=== PATIENT | female | born 1980 | race African-American/Black ===

== ENCOUNTER 2017-07-09 18:02 | Emergency (ER) | payer OTHER ==
[2017-07-09 18:17] VITALS: BMI 54.8
[2017-07-09] MEDS ORDERED: METOCLOPRAMIDE HCL INJECTION 10 MG/2 ML VIAL IVPUSH ONE (19:22)
[2017-07-09] MEDS ORDERED: ACETAMINOPHEN 1000 MG/100 ML VIAL (NON FORMULARY) IVPB ONE (19:22)
[2017-07-09] MEDS ORDERED: SODIUM CHLORIDE 1,000 ML IV STA (19:22)
[2017-07-09] MEDS ORDERED: ACETAMINOPHEN INJECTION 100 ML IVPB ONE (19:33)
[2017-07-09] MEDS ORDERED: METOCLOPRAMIDE HCL INJECTION 10 MG/2 ML VIAL ONE (19:33)
--- NOTE | 2017-07-09 19:40 | PDOC ---
History of Present Illness - General History Source: Patient Exam Limitations: No Limitations - History of Present Illness Initial Comments: 07/09/17 19:50 The patient is a 36 year old female, with a significant past medical history of migraines and protein C deficiency, who presents to the emergency department with, one week of left hip pain and migraines. She describes her left hip pain as a sharp throbbing, radiating down to her left lower leg. She describes her migraine as localized to the back left head radiating to the left frontal region of her head. She reports her symptoms to be similar to her normal migraines. Secondary to her symptoms she reports, difficulty ambulating and minor edema to the left upper thigh. She reports using Tylenol and Motrin, without relief. She denies trauma to the area. She denies photophobia. She denies recent fevers or dizziness. She denies recent nausea, vomit, diarrhea or constipation. She denies recent dysuria, frequency, urgency or hematuria. She denies recent chest pain or shortness of breath. Allergies: NKA Past surgical history: None reported. Social history: Nonsmoker. Denies EtOH use and recreational drug use. <José Antonio Mariano - Last Filed: 07/09/17 22:12> - General History Source: Patient Exam Limitations: No Limitations <Ashvin Castaneda - Last Filed: 07/10/17 00:14> - General Chief Complaint: Migraine Headache Stated Complaint: BACK PAIN Time Seen by Provider: 07/09/17 19:01 Past History <José Antonio Mariano - Last Filed: 07/09/17 22:12> - Past Medical History COPD: No Other medical history: MIGRAINES, PROTEIN C DEFEICENCY - Suicide/Smoking/Psychosocial Hx Smoking History: Never smoked Information on smoking cessation initiated: No Hx Alcohol Use: No Drug/Substance Use Hx: No Substance Use Type: None <Ashvin Castaneda - Last Filed: 07/10/17 00:14> - Past Medical History Allergies/Adverse Reactions: Allergies Allergy/AdvReac Type Severity Reaction Status Date / Time No Known Allergies Allergy Verified 07/09/17 18:13 Home Medications: Ambulatory Orders Acetaminophen 500 mg PO PRN PRN 07/09/17 Acetaminophen/Caffeine/Butalb [Fioricet -] 1 tab PO Q6H PRN #20 tablet MDD 4 Naproxen 500 mg PO BID PRN #20 tablet 07/10/17 Review of Systems - Review of Systems Able to Perform ROS?: Yes Comments:: 07/09/17 19:51 GENERAL/CONSTITUTIONAL: No fever or chills. No weakness. HEAD, EYES, EARS, NOSE AND THROAT: No change in vision. No ear pain or discharge. No sore throat. CARDIOVASCULAR: No chest pain or shortness of breath. RESPIRATORY: No cough, wheezing, or hemoptysis. GASTROINTESTINAL: No nausea, vomiting, diarrhea or constipation. GENITOURINARY: No dysuria, frequency, or change in urination. MUSCULOSKELETAL: +Left hip pain. No neck or back pain. SKIN: No rash NEUROLOGIC: +Migraine.No vertigo, loss of consciousness, or change in strength/ sensation. ENDOCRINE: No increased thirst. No abnormal weight change. HEMATOLOGIC/LYMPHATIC: No anemia, easy bleeding, or history of blood clots. ALLERGIC/IMMUNOLOGIC: No hives or skin allergy. All Other Systems: Reviewed and Negative <José Antonio Mariano - Last Filed: 07/09/17 22:12> *Physical Exam - Vital Signs Last Vital Signs Temp Pulse Resp BP Pulse Ox 99.3 F 94 H 18 133/80 100 07/09/17 18:14 07/09/17 18:14 07/09/17 18:14 07/09/17 18:14 07/09/17 18:14 - Physical Exam Comments: 07/09/17 21:38 GENERAL: Awake, alert, and fully oriented, in no acute distress HEAD: No signs of trauma EYES: PERRLA, EOMI, sclera anicteric, conjunctiva clear ENT: Auricles normal inspection, hearing grossly normal, nares patent, oropharynx clear without exudates. Moist mucosa NECK: Normal ROM, supple, no lymphadenopathy, JVD, or masses LUNGS: Breath sounds equal, clear to auscultation bilaterally. No wheezes, and no crackles HEART: Regular rate and rhythm, normal S1 and S2, no murmurs, rubs or gallops ABDOMEN: Soft, nontender, normoactive bowel sounds. No guarding, no rebound. No masses EXTREMITIES: +Mildly tender along the left proximal lateral thigh around IT band. Normal range of motion, no edema. No clubbing or cyanosis. No cords or erythema. NEUROLOGICAL: Cranial nerves II through XII grossly intact. Normal speech, normal gait SKIN: Warm, Dry, normal turgor, no rashes or lesions noted. <José Antonio Mariano - Last Filed: 07/09/17 22:12> - Vital Signs Last Vital Signs Temp Pulse Resp BP Pulse Ox 99.3 F 94 H 18 133/80 100 07/09/17 18:14 07/09/17 18:14 07/09/17 18:14 07/09/17 18:14 07/09/17 18:14 <Ashvin Castaneda - Last Filed: 07/10/17 00:14> ED Treatment Course - LABORATORY CBC & Chemistry Diagram: 07/09/17 19:52 07/09/17 19:52 <José Antonio Mariano - Last Filed: 07/09/17 22:12> - LABORATORY CBC & Chemistry Diagram: 07/09/17 19:52 07/09/17 19:52 - RADIOLOGY Radiology Studies Ordered: Category Date Time Status HIP & PELVIS-LEFT [RAD] Stat Radiology 07/09/17 19:22 Ordered <Ashvin Castaneda - Last Filed: 07/10/17 00:14> Medical Decision Making - Medical Decision Making 07/09/17 22:12 EXAM: US LOWER EXTREMITY VENOUS DOPPLER EXAM: Duplex venous left lower extremity REASON FOR EXAM: Left leg pain FINDINGS: No evidence of deep venous thrombosis in the visualized segments of the left lower extremity deep venous system. Read by: Ben Donaldson MD <José Antonio Mariano - Last Filed: 07/09/17 22:12> - Medical Decision Making 07/09/17 19:27 A portion of this note was documented by scribe services under my direction. I have reviewed the details of the note, within reason, and agree with the documentation with the following case summary and management plan written by me. Patient treated in the ED. Nursing notes are reviewed and incorporated into the medical decision-making. Vital signs reviewed. Peripheral IV access obtained by the nurse, laboratory studies are drawn and sent, reviewed and interpreted by myself. Vital Signs Temp Pulse Resp BP Pulse Ox 99.3 F 94 H 18 133/80 100 07/09/17 18:14 07/09/17 18:14 07/09/17 18:14 07/09/17 18:14 07/09/17 18:14 36-year-old female with past medical history of protein C deficiency not on anticoagulantion, migraines with left upper thigh pain for one week and headaches for 1. Patient reported that she developed an atraumatic left proximal lateral thigh pain that is causing pain when manipulating. Denies trauma to the area. Denies recent illnesses, fevers, chills, cough. Denies rash or ecchymosis. She stated that the pain has exacerbated her migraines which is left-sided and squeezing like in nature. Denies photophobia and phonophobia. Denies neck stiffness. States that this is exactly like her migraines. The patient's headache is likely her migraine exacerbation. We'll attempt to break her migraines. However, with her history upper to see deficiency and left thigh pain, we'll need to rule out DVT. We'll obtain labs and treat symptoms and reassess. 07/09/17 23:58 CBC, BMP 07/09/17 19:52 07/09/17 19:52 CMP Sodium 139 mmol/L (136-145) 07/09/17 19:52 Potassium 3.6 mmol/L (3.5-5.1) 07/09/17 19:52 Chloride 105 mmol/L (98-107) 07/09/17 19:52 Carbon Dioxide 26 mmol/L (21-32) 07/09/17 19:52 Anion Gap 8 (8-16) 07/09/17 19:52 BUN 6 mg/dL (7-18) L 07/09/17 19:52 Creatinine 0.7 mg/dL (0.55-1.02) 07/09/17 19:52 Creat Clearance w eGFR > 60 (>60) 07/09/17 19:52 Random Glucose 96 mg/dL (74-106) 07/09/17 19:52 Calcium 8.3 mg/dL (8.5-10.1) L 07/09/17 19:52 Phosphorus 3.8 mg/dL (2.5-4.9) 07/09/17 19:52 Magnesium 2.1 mg/dL (1.8-2.4) 07/09/17 19:52 Total Bilirubin 1.1 mg/dL (0.2-1.0) H 07/09/17 19:52 AST 11 U/L (15-37) L 07/09/17 19:52 ALT 18 U/L (12-78) 07/09/17 19:52 Alkaline Phosphatase 108 U/L (45-117) 07/09/17 19:52 Creatine Kinase 99 IU/L (26-192) 07/09/17 19:52 Total Protein 8.6 g/dl (6.4-8.2) H 07/09/17 19:52 Albumin 4.0 g/dl (3.4-5.0) 07/09/17 19:52 Serum , Qual Negative 07/09/17 19:52 Urine Test Results Urine Color Yellow 07/09/17 23:11 Urine Appearance Cloudy 07/09/17 23:11 Urine pH 6.0 (5.0-8.0) 07/09/17 23:11 Ur Specific [place] 1.014 (1.001-1.035) 07/09/17 23:11 Urine Protein 2+ (NEGATIVE) H 07/09/17 23:11 Urine Glucose (UA) Negative (NEGATIVE) 07/09/17 23:11 Urine Ketones Negative (NEGATIVE) 07/09/17 23:11 Urine Blood 3+ (NEGATIVE) H 07/09/17 23:11 Urine Nitrite Negative (NEGATIVE) 07/09/17 23:11 Urine Bilirubin Negative (NEGATIVE) 07/09/17 23:11 Ur Leukocyte Esterase Trace (NEGATIVE) 07/09/17 23:11 Ur Epithelial Cells Few /HPF (FEW) 07/09/17 23:11 Urine Mucus Rare 07/09/17 23:11 (Pt is currently on her menstrual cycle.) Pt reported that the fiociet improved the pain. Hip and pelvis xray reviewed, pending official radiology read. No fracture. Ultrasound reviewed. No DVT. The headache has improved drastically. The leg pain may be musculoskeletal i.e. IT Band injury. I advised the patient to use NSAIDS, follow up with PMD, and fiorciet for migraines. Pt verbalizes understanding and agrees with plan. I discussed the physical exam findings, ancillary test results and final diagnoses with the patient. I answered all of the patient's questions. The patient was satisfied with the care received and felt comfortable with the discharge plan and treatment plan. The patient will call their primary care physician within 24 hours to arrange follow-up and will return to the Emergency Department with any new, persistant or worsening symptoms. <Ashvin Castaneda - Last Filed: 07/10/17 00:14> *DC/Admit/Observation/Transfer - Attestations Scribe Attestion: 07/09/17 19:51 Documentation prepared by José Antonio Mariano, acting as emergency medical service manager for Ashvin Castaneda MD. <José Antonio Mariano - Last Filed: 07/09/17 22:12> - Discharge Dispostion Admit: No <Ashvin Castaneda - Last Filed: 07/10/17 00:14> Diagnosis at time of Disposition: Leg pain, left Migraine Qualifiers: Migraine type: other Status migrainosus presence: without status migrainosus Intractability: not intractable Qualified Code(s): G43.809 - Other migraine, not intractable, without status migrainosus - Discharge Dispostion Disposition: HOME Condition at time of disposition: Improved - Prescriptions Prescriptions: Acetaminophen/Caffeine/Butalb [Fioricet -] 1 tab PO Q6H PRN #20 tablet MDD 4 PRN Reason: Migraine Naproxen 500 mg PO BID PRN #20 tablet PRN Reason: Pain - Referrals Referrals: Oren John MD [Staff Physician] - - Patient Instructions Printed Discharge Instructions: DI for Migraine, DI for Leg Pain Additional Instructions: Your ultrasound is negative for blood clots. Please take 500 mg naproxen every 12 hours as needed for pain. Take 1 tablet of fiorciet as needed for migraine. Follow up with your doctor.
[2017-07-09 19:55] LABS: BASO % 0.8 % (0-2.0); EOS % 1.4 % (0-4.5); HEMATOCRIT 34.6 % (32.4-45.2); HEMOGLOBIN 11.4 GM/dL (10.7-15.3); MCH 26.4 pg (25.7-33.7); MEAN CELL VOLUME 80.1 fl (80-96); MEAN PLT VOLUME 9.2 fl (7.5-11.1); MONO % 11.8 % (3.8-10.2); PLATELET COUNT 385 K/MM3 (134-434); RBC 4.32 M/mm3 (3.60-5.2); RDW 15.2 % (11.6-15.6); WHITE BLOOD COUNT 12.5 K/mm3 (4.0-10.0)
[2017-07-09 20:09] LABS: INR 1.18 (0.82-1.09); PROTHROMBIN TIME (PATIENT) 13.3 SEC (9.98-11.88)
[2017-07-09 20:12] LABS: ACTIVATED PTT 17.7 SECONDS (26.9-34.4)
[2017-07-09 20:33] LABS: ANION GAP 8 (8-16); BLOOD UREA NITROGEN 6 mg/dL (7-18); CALCIUM 8.3 mg/dL (8.5-10.1); CHLORIDE 105 mmol/L (98-107); CO2 26 mmol/L (21-32); CREATININE 0.7 mg/dL (0.55-1.02); GLUCOSE,RANDOM 96 mg/dL (74-106); MAGNESIUM 2.1 mg/dL (1.8-2.4); PHOSPHOROUS 3.8 mg/dL (2.5-4.9); POTASSIUM 3.6 mmol/L (3.5-5.1); SGOT/AST 11 U/L (15-37); SGPT/ALT 18 U/L (12-78); SODIUM 139 mmol/L (136-145)
[2017-07-09 20:34] LABS: ALK PHOS 108 U/L (45-117); BILIRUBIN,TOTAL 1.1 mg/dL (0.2-1.0); TOT PROT 8.6 g/dl (6.4-8.2)
[2017-07-09] MEDS ORDERED: KETOROLAC TROMETHAMINE 30 MG/1 ML VIAL IVPUSH ONE (20:40)
[2017-07-09] MEDS ORDERED: ACETAMINOPHEN/CAFFEINE/BUTALBITAL 1 TAB PO ONE (22:34)
[2017-07-09] MEDS ORDERED: ACETAMINOPHEN/CAFFEINE/BUTALBITAL 1 TAB ONE (22:39)
[2017-07-09 23:25] LABS: URINE APPEARANCE CLOUDY; URINE BILIRUBIN NEGATIVE (NEGATIVE); URINE BLOOD 3+ (NEGATIVE); URINE COLOR YELLOW; URINE GLUCOSE (UA) NEGATIVE (NEGATIVE); URINE KETONE NEGATIVE (NEGATIVE); URINE LEUK ESTERASE TRACE (NEGATIVE); URINE NITRITE NEGATIVE (NEGATIVE); URINE UROBILINOGEN NEGATIVE mg/dL (0.2-1.0)
[2017-07-09 23:33] LABS: URINE PROTEIN 2+ (NEGATIVE)
[2017-07-09 23:34] LABS: EPI CELLS FEW /HPF (FEW); URINE MUCUS RARE
[2017-07-10 00:07] VITALS: BP 127/68; PULSE 81; TEMP 98.2
== END 2017-07-10 00:49 | disposition home or self-care (01) ==
LOC: JER 18:02
PROC: 3E033NZ Introduction of Analgesics, Hypnotics, Sedatives into Peripheral Vein, Percutaneous Approach (ICD-10-PCS; principal; 2017-07-09)
PROC: 3E0333Z Introduction of Anti-inflammatory into Peripheral Vein, Percutaneous Approach (ICD-10-PCS; 2017-07-09)
PROC: 3E033GC Introduction of Other Therapeutic Substance into Peripheral Vein, Percutaneous Approach (ICD-10-PCS; 2017-07-09)
PROC: 3E033GC Introduction of Other Therapeutic Substance into Peripheral Vein, Percutaneous Approach (ICD-10-PCS; 2017-07-09)
DX: G43.809 Other migraine, not intractable, without status migrainosus (principal); M54.5 Low back pain; M79.605 Pain in left leg
CPT/HCPCS: 36415; 73523-TC; 80053; 81003; 81015; 82550; 83735; 84100; 84703; 85025; 85610; 85730; 87086; 93971-TC; 96374; 96375; 99283-25